=== PATIENT | male | born 1995 | race Two or more races ===

== ENCOUNTER 2022-05-04 19:45 | Emergency (ER) | payer OTHER ==
[2022-05-04 20:20] VITALS: BP 107/58; PULSE 56; TEMP 98.1; BMI 24.5
[2022-05-04] MEDS ORDERED: IBUPROFEN 600 MG TABLET (FP) PO ONE ×2 (20:42→20:49)
== END 2022-05-04 21:22 | disposition home or self-care (01) ==
LOC: FER 19:45
DX: S16.1XXA Strain of muscle, fascia and tendon at neck level, initial encounter (principal); S13.4XXA Sprain of ligaments of cervical spine, initial encounter; V49.40XA Driver injured in collision with unspecified motor vehicles in traffic accident, initial encounter
CPT/HCPCS: 72050-TC-FY; 99283-25

== ENCOUNTER 2022-09-25 22:13 | Emergency (ER) | payer OTHER ==
[2022-09-25 22:33] VITALS: BP 122/73; PULSE 80; RESP 18; TEMP 98.1; BMI 25.1
== END 2022-09-25 23:09 | disposition home or self-care (01) ==
LOC: JER 22:13
DX: J00 Acute nasopharyngitis [common cold] (principal)
CPT/HCPCS: 0241U-QW; 99283-25